=== PATIENT | female | born 1940 | race Caucasian/White ===

== ENCOUNTER → 2016-12-17 | Outpatient (CLI) | payer MEDICARE, OTHER ==
[~2016-12-17] MED LIST: BENADRYL25 MG PO; CALTRATE-600 W600 MG PO; CENTRUM COMPLE1 EACH PO; CLARITIN DPS10 MG PO; COMPAZINE DPS5 MG PO; DULCOLAX-DPS10 MG PR; FEOSOL-DPS325 MG PO; HYDROCODONE 5MG/5 MG PO; MAALOX DPS30 ML PO; MILK OF MAGNESI10 ML PO; PERCOCET 10 DPS1 TAB PO; PROTONIX40 MG PO; SENOKOT S1 TAB PO; SURFAK DPS240 MG PO; THERAPEUTIC MUL1 TAB PO; TYLENOL DPS325 MG PO; VITAMIN B-121000 MCG PO; XANAX DPS0.25 MG PO; XARELTO10 MG PO; ZOFRAN DPS8 MG PO; [UNRECOGNIZED DRUG - OTHER] PO; [UNRECOGNIZED DRUG - REMARK] NS
== END | disposition home or self-care (01) ==
LOC: RAD.S 12-14 10:35
DX: Z12.31 Encounter for screening mammogram for malignant neoplasm of breast (principal); R42 Dizziness and giddiness; R09.89 Other specified symptoms and signs involving the circulatory and respiratory systems